=== PATIENT | female | born 1945 | race Caucasian/White ===

== ENCOUNTER → 2017-04-21 | Outpatient (CLI) | payer MEDICARE, BC ==
--- NOTE | 2017-04-21 16:32 | RAD ---
CT of the head without contrast, 04/21/2017: History: Hypertension, headache The ventricles are within normal limits in size. There is no shift of the midline structures. There is no evidence of acute intracranial hemorrhage or mass effect. A tiny lucency in the right caudate nucleus is compatible with an old lacunar infarct. No abnormal extra-axial fluid collection or mass is seen. IMPRESSION: 1. Tiny old lacunar infarct in the right caudate nucleus. 2. No acute intracranial abnormality is detected. PQRS Compliance Statement: One or more of the following individualized dose reduction techniques were utilized for this examination: 1. Automated exposure control 2. Adjustment of the mA and/or kV according to patient size 3. Use of iterative reconstruction technique
== END | disposition home or self-care (01) ==
LOC: CT 15:58
PROVIDERS: ATTEND Nurse Practitioner Family
DX: I10 Essential (primary) hypertension (principal); I63.9 Cerebral infarction, unspecified; R51 Headache
CPT/HCPCS: 70450

== ENCOUNTER → 2018-05-10 | Day surgery (SDC) | payer MEDICARE, BC ==
[~2018-05-10] MED LIST: ALBUTEROL SULFATE 2.5 MG/3 ML NEBU. NEB PRN; ATROPINE 0.5 MG/5 ML DISP.SYRIN. IV PRN; ESCITALOPRAM OX10 MG PO; IV RINGERS SOLUTION,LACTATED 1,000 ML IV SCH; LEVO50TA PO; LIDOCAINE 2% PF Vial for OR 5 ML VIAL. ONE; NALOXONE 0.4 MG/ML VIAL. IV PRN; ONDANSETRON PF 4 MG/2 ML VIAL. IV PRN; diphenhydrAMINE 50 MG/ML VIAL IV PRN
[2018-05-10 16:36] VITALS: BP 171/72
== END | disposition home or self-care (01) ==
LOC: SURG 14:28
PROVIDERS: ATTEND Internal Medicine Gastroenterology
DX: Z12.11 Encounter for screening for malignant neoplasm of colon (principal); E03.9 Hypothyroidism, unspecified; F32.9 Major depressive disorder, single episode, unspecified; Z88.0 Allergy status to penicillin; Z88.5 Allergy status to narcotic agent; Z98.890 Other specified postprocedural states; Z72.89 Other problems related to lifestyle; Z87.891 Personal history of nicotine dependence; Z87.440 Personal history of urinary (tract) infections; Z79.899 Other long term (current) drug therapy
CPT/HCPCS: G0121; J7120; G0105; J2001